=== PATIENT | male | born 1985 | race American Indian/Alaskan Native ===

== ENCOUNTER 2016-12-02 10:08 | Emergency (ER) | payer MEDICARE, OTHER ==
[2016-12-02 10:11] VITALS: BMI 16.7
[2016-12-02 10:12] VITALS: TEMP 98; O2SAT 100
[2016-12-02] MEDS ORDERED: Sodium Chloride 0.9% 1,000 ML IV STA ×2 (10:44→10:52)
[2016-12-02] MEDS ORDERED: DiphenhydrAMINE 50 mg/ml Inj IV STA (10:52)
[2016-12-02 12:11] LABS: BASO % 0.6 % (0.0-2.0); EOS % 1.2 % (0.0-4.0); HEMATOCRIT 31.1 % (35.0-51.0); LYMPH # 1.7 K/uL (1.0-4.3); LYMPH % 46.2 % (20.0-40.0); MEAN CELL VOLUME 91.4 fl (80.0-94.0); MEAN CORPUSCULAR HEMOGLOBIN 30.3 pg (27.0-31.0); MEAN CORPUSCULAR HGB CONC 33.2 g/dL (33.0-37.0); MEAN PLATELET VOLUME 8.8 fl (7.2-11.7); MONO # 0.2 K/uL (0.0-0.8); MONO % 4.4 % (0.0-10.0); NEUT # 1.7 K/uL (1.8-7.0); NEUT % 47.6 % (50.0-75.0); NRBC % 0.2 % (0.0-0.0); RED CELL DISTRIBUTION WIDTH 13.5 % (11.5-14.5); WHITE BLOOD COUNT 3.6 K/uL (4.8-10.8)
[2016-12-02 12:20] LABS: ALKALINE PHOSPHATASE 112 U/L (38-126); ALT/SGPT 21 U/L (21-72); AST/SGOT 26 U/L (17-59); BILIRUBIN,TOTAL 0.8 mg/dl (0.2-1.3); CALCIUM 8.1 mg/dL (8.4-10.2); CARBON DIOXIDE 27 mmol/L (22-30); CHLORIDE 102 mmol/L (98-107); GFR AFRICAN-AMERICAN > 60; GLUCOSE,RANDOM 372 mg/dL (75-110); POTASSIUM 4.1 MMOL/L (3.6-5.0); SODIUM 137 mmol/l (132-148); TOTAL PROTEIN 5.2 G/DL (6.3-8.2)
[2016-12-02 12:22] LABS: BLOOD UREA NITROGEN 2 mg/dl (9-20); LIPASE < 10 U/L (23-300)
--- NOTE | 2016-12-02 13:08 | ED PDOC ---
HPI: Abdomen Time Seen by Provider: 12/02/16 10:26 Chief Complaint (Nursing): Abdominal Pain Chief Complaint (Provider): "my chronic pancreatitis is back" History Per: Patient History/Exam Limitations: no limitations Onset/Duration Of Symptoms: Days (3), Gradual Current Symptoms Are (Timing): Still Present Context: Food Location Of Pain/Discomfort: Diffuse Associated Symptoms: Nausea. denies: Fever Additional Complaint(s): 31yo male c/o ongoing chronic pain with pancreatitis. States due to have surgery at [facility] this month. Denies fever, admits to some nausea/vomiting. States takes no pain medications at home. Requesting IV narcotics in ED. Prior charts reviewed as available, seen at [facility] [facility] several days ago for which he was not honest. Past Medical History Reviewed: Historical Data, Nursing Documentation, Vital Signs Vital Signs: Last Vital Signs Temp 98.0 F 12/02/16 10:11 Pulse 104 H 12/02/16 10:11 Resp 16 12/02/16 10:11 BP 121/73 12/02/16 10:11 Pulse Ox 100 12/02/16 10:11 - Medical History PMH: Pancreatitis (CHRONIC) Denies: Chronic Kidney Disease - Surgical History Surgical History: Cholecystectomy - Family History Family History: States: Unknown Family Hx - Living Arrangements Living Arrangements: With Family - Social History Current smoker - smoking cessation education provided: No Alcohol: None Drugs: Denies - Immunization History Hx Tetanus Toxoid Vaccination: Yes - Home Medications Home Medications: Ambulatory Orders Medication Instructions Recorded Amylase/Lipase/Protease [Pancrease 1 ecc PO DAILY #10 ecc 11/08/16 33698 U-5000 U-[id number] U] Amylase/Lipase/Protease [Pancrease 1 u PO AC #10 ecc 11/08/16 95969 U-5000 U-54572 U] Insulin Aspart, Recombinant See Protocol IM DAILY #10 unit 11/08/16 [Novolog] Insulin Human Regular-MED [HumuLIN 0 units SC ACHS #0 ml 11/08/16 R MED] - Allergies Allergies/Adverse Reactions: Allergies Allergy/AdvReac Type Severity Reaction Status Date / Time famotidine [From Pepcid] Allergy NAUSEA Verified 12/02/16 10:34 ketorolac tromethamine Allergy NAUSEA Verified 12/02/16 10:34 [From Toradol] tramadol Allergy NAUSEA Verified 12/02/16 10:34 Review of Systems ROS Statement: Except As Marked, All Systems Reviewed And Found Negative Constitutional: Negative for: Fever, Chills Cardiovascular: Negative for: Chest Pain, Palpitations Respiratory: Negative for: Cough, Shortness of Breath Gastrointestinal: Positive for: Nausea, Vomiting, Abdominal Pain. Negative for : Diarrhea Genitourinary Male: Negative for: Dysuria, Frequency Musculoskeletal: Negative for: Neck Pain, Back Pain Skin: Negative for: Rash, Jaundice Neurological: Negative for: Weakness, Numbness Psych: Negative for: Anxiety Physical Exam - Reviewed Nursing Documentation Reviewed: Yes Vital Signs Reviewed: Yes - Physical Exam Appears: Positive for: Well, Non-toxic, No Acute Distress Head Exam: Positive for: ATRAUMATIC, NORMAL INSPECTION, NORMOCEPHALIC Skin: Positive for: Normal Color, Warm, DRY Eye Exam: Positive for: EOMI, Normal appearance, PERRL ENT: Positive for: Normal ENT Inspection Neck: Positive for: Normal, Painless ROM Cardiovascular/Chest: Positive for: Regular Rate, Rhythm Respiratory: Positive for: CNT, Normal Breath Sounds Gastrointestinal/Abdominal: Positive for: Bowel Sounds, Soft, Tenderness (mild diffuse). Negative for: Guarding, Rebound Extremity: Positive for: Normal ROM, Other (frail). Negative for: Deformity, Swelling Neurologic/Psych: Positive for: Alert, Oriented - Laboratory Results Result Diagrams: 12/02/16 11:20 12/02/16 11:20 - ECG O2 Sat by Pulse Oximetry: 100 Medical Decision Making Medical Decision Making: Abdominal labs ordered, including lipase. IVF and pain medication initiated. Per RN, patient requested morphine be pushed into port rapidly, requesting Benadryl also. [place] Rx monitoring database queried. Received oxycodone 30mg #120 pills 11/09/16, and prior several months also received large quantities of oxycodone. When initially questioned, patient states "Im due to start pain management next week", and denies recent narcotic Rx or pain regimen. When presented with the data from Rx monitoring database he became argumentative and uncooperative. Told due to new laws, unable to refill chronic narcotic Rx in ED. labs similar to prior values. Lipase unremarkable. DC from ED Disposition - Clinical Impression Clinical Impression: Abdominal pain, Opioid type dependence - Patient ED Disposition Is Patient to be Admitted: No Counseled Patient/Family Regarding: Studies Performed, Diagnosis, Need For Followup - Disposition Disposition: Routine/Home Disposition Time: 13:01 Condition: STABLE Additional Instructions: Followup with your specialists as directed. Return to ER for any new or worsening symptoms. [place] Rx monitoring demonstrates oxycodone 30mg #120 filled 11/09/16. Please followup with your pain doctor as directed. Instructions: Chronic Pain (ED), Acute Abdominal Pain (ED)
[2016-12-02 13:14] VITALS: BP 122/70; PULSE 89; RESP 18
[2016-12-02 14:47] LABS: RBC URINE < 1 /hpf (0-3); URINE BILIRUBIN NEGATIVE (NEGATIVE); URINE BLOOD NEGATIVE (NEGATIVE); URINE COLOR YELLOW (YELLOW); URINE GLUCOSE (UA) >=500 mg/dL (Normal); URINE KETONE NEGATIVE (NEGATIVE); URINE LEUKOCYTE ESTERASE NEG Leu/uL (Negative); URINE PROTEIN NEGATIVE (NEGATIVE); URINE UROBILINOGEN 0.2-1.0 mg/dL (0.2-1.0)
== END 2016-12-02 13:15 | disposition home or self-care (01) ==
LOC: MERGE 10:08 → H.ER 10:08
DX: R10.9 Unspecified abdominal pain (principal); F11.20 Opioid dependence, uncomplicated
CPT/HCPCS: 80053; 81003; 83690; 85025; 96374; 96375; 96376; 99282; J1200; J2270; J7040

== ENCOUNTER 2016-12-03 09:39 | Emergency (ER) | payer MEDICARE, OTHER ==
[2016-12-03 09:39] VITALS: BMI 16.7
[2016-12-03 09:43] VITALS: BP 115/76; PULSE 83; TEMP 98.7; O2SAT 99
--- NOTE | 2016-12-03 09:54 | ED PDOC ---
HPI: General Adult Time Seen by Provider: 12/03/16 09:50 Chief Complaint (Nursing): Back Pain Chief Complaint (Provider): chronic pain History Per: Patient History/Exam Limitations: no limitations Additional Complaint(s): 31yo male comes to the ED complaining of chronic back and abdominal pain. States symptoms are consistent with previous visits. He has been seen by me on prior visits and has been seen multiple times by Juan C and Ajit. He was last seen yesterday for chronic abdominal pain. He reports the same chronic abdominal pain. He reports that he is following up with pain management on 12/09. He reports that he is following up at [facility] for surgery at the end of this month. He is requesting narcotic medication for pain as "I am allergic to Tylenol and Motrin doesn't do anything for me." Past Medical History Reviewed: Historical Data, Nursing Documentation, Vital Signs Vital Signs: Last Vital Signs Temp 98.7 F 12/03/16 09:42 Pulse 83 12/03/16 09:42 Resp BP 115/76 12/03/16 09:42 Pulse Ox 99 12/03/16 10:24 - Medical History PMH: Pancreatitis (CHRONIC) Denies: Chronic Kidney Disease - Surgical History Surgical History: Cholecystectomy - Family History Family History: States: Unknown Family Hx - Immunization History Hx Tetanus Toxoid Vaccination: Yes - Home Medications Home Medications: Ambulatory Orders Medication Instructions Recorded Amylase/Lipase/Protease [Pancrease 1 ecc PO DAILY #10 ecc 11/08/16 67192 U-5000 U-[id number] U] Amylase/Lipase/Protease [Pancrease 1 u PO AC #10 ecc 11/08/16 94542 U-5000 U-[id number] U] Insulin Aspart, Recombinant See Protocol IM DAILY #10 unit 11/08/16 [Novolog] Insulin Human Regular-MED [HumuLIN 0 units SC ACHS #0 ml 11/08/16 R MED] - Allergies Allergies/Adverse Reactions: Allergies Allergy/AdvReac Type Severity Reaction Status Date / Time famotidine [From Pepcid] Allergy NAUSEA Verified 12/03/16 09:45 ketorolac tromethamine Allergy NAUSEA Verified 12/03/16 09:45 [From Toradol] tramadol Allergy NAUSEA Verified 12/03/16 09:45 Review of Systems ROS Statement: Except As Marked, All Systems Reviewed And Found Negative Gastrointestinal: Positive for: Abdominal Pain Musculoskeletal: Positive for: Back Pain Physical Exam - Reviewed Nursing Documentation Reviewed: Yes Vital Signs Reviewed: Yes - Physical Exam Appears: Positive for: Well (resting comfortably in bed), Non-toxic, No Acute Distress Head Exam: Positive for: ATRAUMATIC, NORMAL INSPECTION, NORMOCEPHALIC Skin: Positive for: Warm, Dry Eye Exam: Positive for: EOMI, PERRL Cardiovascular/Chest: Positive for: Regular Rate, Rhythm Respiratory: Positive for: Normal Breath Sounds. Negative for: Rales, Rhonchi, Stridor Gastrointestinal/Abdominal: Positive for: Tenderness (mild generalized tenderness (consistent with prior exams by this MD)) Neurologic/Psych: Positive for: Alert, Oriented (x3), Gait (normal) - ECG O2 Sat by Pulse Oximetry: 99 (RA) Pulse Ox Interpretation: Normal Medical Decision Making Medical Decision Makin Old charts reviewed. Patient was seen by me on 11/05/16 for chronic pancreatitis , at the time reporting he had pain management follow up. Patient was also seen on 12/02/16, requesting pain medications for chronic pancreatitis. Patient was also seen at [facility] on 11/29/16 for similar complaint. 1000: I explained I am unable to give narcotics in the ED for chronic complaints. Explained patient needs to contact pain management for an earlier appointment. Offered Motrin PO and anti-emetic Patient walked out of ED while I was seeing another patient. Disposition - Clinical Impression Clinical Impression: Chronic pancreatitis, Chronic back pain - Disposition Disposition: Left W/O Treatment Disposition Time: 10:24 Condition: UNKNOWN Additional Comments - Additional Comments Additional Comments: Scribe Attestation: Documented by Ryan Cole acting as a scribe for Kyra Delarosa MD. Scribflorecita Attestation: All medical record entries made by the Scribe were at my direction and personally dictated by me. I have reviewed the chart and agree that the record accurately reflects my personal performance of the history, physical exam, medical decision making, and the department course for this patient. I have also personally directed, reviewed, and agree with the discharge instructions and disposition.
== END 2016-12-03 10:05 | disposition left against medical advice (07) ==
LOC: H.ER 09:39 → MERGE 09:39 → H.ER 10:05
DX: M54.9 Dorsalgia, unspecified (principal); F11.20 Opioid dependence, uncomplicated; K86.1 Other chronic pancreatitis

== ENCOUNTER 2017-06-16 06:35 | Emergency (ER) | payer MEDICARE, OTHER ==
[2017-06-16 06:35] VITALS: BMI 20.3
[2017-06-16 06:51] VITALS: BP 88/59; PULSE 95; RESP 16; TEMP 98.8; O2SAT 100
--- NOTE | 2017-06-16 07:20 | ED PDOC ---
HPI: Abdomen Time Seen by Provider: 06/16/17 07:02 Chief Complaint (Nursing): Abdominal Pain Chief Complaint (Provider): abdominal pain History Per: Patient History/Exam Limitations: no limitations Onset/Duration Of Symptoms: Other (chronic) Outside of [place] travel?: No Severity: Mild Location Of Pain/Discomfort: Epigastric Quality Of Discomfort: Dull Associated Symptoms: denies: Fever, Chills, Nausea, Vomiting, Diarrhea, Back Pain, Constipation, Urinary Symptoms Exacerbating Factors: None Alleviating Factors: None Additional History Per: Patient, Prior Records Additional Complaint(s): Ian Rowland is a 31 year old male, with a previous medical history of chronic abdominal pain, pancreatitis and diabetes, who presents to the ED with complaints of diffuse abdominal pain radiating to his back. Patient reports nothing makes the pain better or worse. Upon reviewing previous charts, it was found that the patient was seen in the ED over 30 times within the past 2 years exhibiting narcotic seeking behavior. Patient is reporting he is awaiting a pancreatic transplant at [facility]. on review of the prev records at [facility] on the pt last visit approx 9 days ago, for the safety of the pt no narcotic would be given unless the workup reveals any acute issues and the pt would f/u with pmd or pain management. I will continue with this plan here, i offered non narcotic pain relief initillay and perform the workup and will give narcotic pain medication if appropriate. PMD: none provided Against Medical Advice - AMA Patient Left Against Medical Advice: The patient declines admission to the hospital and wishes to leave the Emergency Department. This action is against my medical advice. This decision was made with informed refusal. The patient was told that admission to the hospital is necessary. Explanation of the reasons why were discussed. The risks of leaving were explained to the patient and include, but are not limited to, worsening of known or currently unknown conditions, permanent disability and from undiagnosed or untreated conditions. The patient has the capacity to make this informed decision and understands my explanation of the current medical problem and risks of leaving. The patient voluntarily accepts these risks and signed an AMA form documenting our conversation. The patient was given the opportunity to ask questions and reconsider. The patient was encouraged to return to the Emergency Department at any time for further care. Past Medical History Reviewed: Historical Data, Nursing Documentation, Vital Signs Vital Signs: Last Vital Signs Temp 98.8 F 10/25/17 06:46 Pulse 95 H 06/16/17 06:46 Resp 16 06/16/17 06:46 BP 88/59 L 06/16/17 06:46 Pulse Ox 100 06/16/17 11:29 - Medical History PMH: Diabetes (IDDM), Pancreatitis (CHRONIC) Denies: Alzheimer's Disease, Anemia, HIV, HTN, Hypercholesterolemia, Migraine , Mitral Valve Prolapse, Multiple Sclerosis, Osteoporosis, Parkinson's Disease, Peripheral Edema, Pneumonia, Chronic Kidney Disease - Surgical History Surgical History: Cholecystectomy - Family History Family History: States: Unknown Family Hx - Immunization History Hx Tetanus Toxoid Vaccination: Yes Hx Influenza Vaccination: Yes Hx Pneumococcal Vaccination: No - Home Medications Home Medications: Ambulatory Orders Medication Instructions Recorded Insulin Aspart/Insulin Aspar 10 unit SQ TID 09/29/15 [Novolog Mix 70/30 (70/30 units/ml)] - Allergies Allergies/Adverse Reactions: Allergies Allergy/AdvReac Type Severity Reaction Status Date / Time acetaminophen [From Tylenol] Allergy RASH Verified 06/16/17 06:55 famotidine [From Pepcid] Allergy RASH Verified 06/16/17 06:55 ketorolac [From Toradol] Allergy RASH Verified 06/16/17 06:55 Review of Systems ROS Statement: Except As Marked, All Systems Reviewed And Found Negative Gastrointestinal: Positive for: Abdominal Pain Physical Exam - Reviewed Nursing Documentation Reviewed: Yes Vital Signs Reviewed: Yes - Physical Exam Appears: Positive for: Well, Non-toxic, No Acute Distress Head Exam: Positive for: ATRAUMATIC, NORMAL INSPECTION, NORMOCEPHALIC Skin: Positive for: Normal Color, Warm, DRY Eye Exam: Positive for: EOMI, Normal appearance, PERRL ENT: Positive for: Normal ENT Inspection Neck: Positive for: Normal, Painless ROM Cardiovascular/Chest: Positive for: Regular Rate, Rhythm Respiratory: Positive for: CNT, Normal Breath Sounds Gastrointestinal/Abdominal: Positive for: Normal Exam, Bowel Sounds, Soft Back: Positive for: Normal Inspection Extremity: Positive for: Normal ROM Neurologic/Psych: Positive for: Alert, Oriented - ECG O2 Sat by Pulse Oximetry: 100 (RA) Pulse Ox Interpretation: Normal Medical Decision Making Medical Decision Making: Initial Impression: Chronic Abdominal Pain Initial Plan: * CT abd & pelvis w/o contrast * lipase * amylase * urinalysis * protonix INJ * reevaluation 07:27 Patient is refusing blood work, treatment or CT scan. He will be signing out AMA. Leaving Against Medical Advice (AMA): This patient is choosing to leave against medical advice. The EP has personally explained to the pt that choosing to do so may result in permanent bodily harm or . The EP discussed at great length that without further evaluation and monitoring there may be unforeseen circumstances and/or deterioration causing permanent bodily harm or as a result of their choice. The pt verbalized these risks back to the physician in laymans terms. The pt is alert , oriented, and shows the mental capacity to make clear decisions regarding the pts health care at this time. The pt continues to wish to leave against medical advice. In light of the pts decision to leave AMA, follow-up has been arranged and the pt is aware of the importance of following up as instructed. The pt has been advised that they should return to the ED immediately if they change their mind at any time, or if thier condition begins to change or worsen in any way. Scribe Attestation: Documented by Danni James, acting as a scribe for Donta Devlin MD. Provider Scribe Attestation: All medical record entries made by the Scribe were at my direction and personally dictated by me. I have reviewed the chart and agree that the record accurately reflects my personal performance of the history, physical exam, medical decision making, and the department course for this patient. I have also personally directed, reviewed, and agree with the discharge instructions and disposition. Disposition - Clinical Impression Clinical Impression: Hyperglycemia, Abdominal pain - Patient ED Disposition Is Patient to be Admitted: No Counseled Patient/Family Regarding: Studies Performed - Disposition Referrals: [facility] [place] [Outside] (shea or with your docotor) Disposition: Against Medical Advice Disposition Time: 08:00 Condition: STABLE Additional Instructions: your blood pressure is low and sugar is high you need iv fluids please come back to this or any other ed for treatment Instructions: Acute Abdominal Pain (ED) Forms: [employer] ([place])
== END 2017-06-16 07:40 | disposition left against medical advice (07) ==
LOC: H.ER 06:35
DX: G89.29 Other chronic pain (principal); E11.65 Type 2 diabetes mellitus with hyperglycemia; Z79.4 Long term (current) use of insulin

== ENCOUNTER 2017-07-06 16:35 | Emergency (ER) | payer MEDICARE, OTHER ==
[2017-07-06 16:35] VITALS: BMI 14.8
[2017-07-06 16:42] VITALS: BP 134/78; PULSE 94; RESP 18; TEMP 98; O2SAT 97
--- NOTE | 2017-07-06 17:21 | ED PDOC ---
HPI: Abdomen Time Seen by Provider: 07/06/17 17:10 Chief Complaint (Nursing): Abdominal Pain Chief Complaint (Provider): Abdominal Pain History Per: Patient History/Exam Limitations: no limitations Onset/Duration Of Symptoms: Days (x1 week) Current Symptoms Are (Timing): Still Present Additional Complaint(s): Ian Rowland is a 32 year old male with a past medical history of chronic pancreatitis who presents to the ED complaining of abdominal pain x1 week. Patient was seen in [facility] 06/16 for similar complaints and given Toradol with no relief. Patient denied testing and CAT scan for evaluation of abdominal pain at the time. Denies fever, chills or alcohol intake. Patient states he has been unable to hold down food or drink for a week. Also states he is on a pancreas transplant list. Notes additional itching on arms and bleeding scab on back. PMD: No PMD Past Medical History Reviewed: Historical Data, Nursing Documentation, Vital Signs Vital Signs: Last Vital Signs Temp 98.0 F 07/06/17 16:40 Pulse 94 H 07/06/17 16:40 Resp 18 07/06/17 16:40 BP 134/78 07/06/17 16:40 Pulse Ox 97 07/07/17 00:32 - Medical History PMH: Diabetes (IDDM), Pancreatitis (CHRONIC), Chronic Pain Denies: Alzheimer's Disease, Anemia, HIV, HTN, Hypercholesterolemia, Migraine , Mitral Valve Prolapse, Multiple Sclerosis, Osteoporosis, Parkinson's Disease, Peripheral Edema, Pneumonia, Chronic Kidney Disease - Surgical History Surgical History: Cholecystectomy - Family History Family History: States: Unknown Family Hx - Social History Current smoker - smoking cessation education provided: No Alcohol: None Drugs: Denies - Immunization History Hx Tetanus Toxoid Vaccination: Yes Hx Influenza Vaccination: Yes Hx Pneumococcal Vaccination: No - Home Medications Home Medications: Ambulatory Orders Medication Instructions Recorded No Known Home Med 06/16/17 - Allergies Allergies/Adverse Reactions: Allergies Allergy/AdvReac Type Severity Reaction Status Date / Time acetaminophen [From Tylenol] Allergy RASH Verified 07/06/17 16:39 famotidine [From Pepcid] Allergy RASH Verified 07/06/17 16:39 ketorolac [From Toradol] Allergy RASH Verified 07/06/17 16:39 Review of Systems ROS Statement: Except As Marked, All Systems Reviewed And Found Negative Constitutional: Negative for: Fever, Chills Gastrointestinal: Positive for: Abdominal Pain Skin: Positive for: Lesions (Bleeding scab on back), Other (Bilateral arm irritation) - ECG O2 Sat by Pulse Oximetry: 97 (RA) Pulse Ox Interpretation: Normal - Progress ED Course And Treament: patient left prior to diagnostic testing. Medical Decision Making Medical Decision Making: Time: 17:22 Initial Impression: Abdominal pain Plan: --Alcohol serum --CMP --Lipase --CBC --Urinalysis --Reevaluation Scribe Attestation: Documented by Ancelmo Steward, acting as a scribe for Bhavin Alvarez PA-C Provider Scribe Attestation: All medical record entries made by the Scribe were at my direction and personally dictated by me. I have reviewed the chart and agree that the record accurately reflects my personal performance of the history, physical exam, medical decision making, and the department course for this patient. I have also personally directed, reviewed, and agree with the discharge instructions and disposition. Disposition - Clinical Impression Clinical Impression: Abdominal discomfort - Patient ED Disposition Is Patient to be Admitted: No - Disposition Disposition: Left W/O Treatment Disposition Time: 18:30 Condition: UNKNOWN Forms: [employer] ([place]e)
== END 2017-07-06 20:00 | disposition home or self-care (01) ==
LOC: H.ER 16:35
DX: G89.29 Other chronic pain (principal); E11.9 Type 2 diabetes mellitus without complications; Z79.4 Long term (current) use of insulin